=== PATIENT | female | born 1965 | race Two or more races ===

== ENCOUNTER 2024-08-14 13:22 | Inpatient (IN) | payer MEDICAID, OTHER ==
[~2024-08-14] VITALS: Ht 134.6 cm; Wt 55.4 kg
--- NOTE | 2024-08-14 13:34 | ED.PDOC ---
History of Present Illness HPI Comments 58-year-old female came to the ER stating that she has been having dizziness for the past two days associated with blurring of vision. Blood pressure of 227/84. Heart rate of 100. Patient denies taking any medication for her blood pressure. She also states that she is unable to ambulate without feeling that she is going to fall down for the past few days. Denies nausea vomiting. Denies any other symptoms. Time Seen by MD: 13:33 Reviewed Notes: Nurses Notes, Medications, Allergies Information Source: Patient Mode of Arrival: Ambulatory Severity: Moderate Timing: Days Duration: Since onset Past Medical History PAST MEDICAL HISTORY: Denies Surgical History: Denies all surgeries INTERNAL CONTROLS CONSULTANT History: No Pertinent INTERNAL CONTROLS CONSULTANT History Social History Smoker: Non-Smoker Alcohol: Denies ETOH Use Drugs: Denies Drug Use Constitutional: denies: chills, diaphoresis, fatigue, fever, malaise, sweats, weakness, others EENTM: denies: blurred vision, double vision, ear bleeding, ear discharge, ear drainage, ear pain, ear ringing, eye pain, eye redness, hearing loss, mouth pain, mouth swelling, nasal discharge, nose bleeding, nose congestion, nose pain, photophobia, tearing, throat pain, throat swelling, voice changes, others Cardiovascular: denies: chest pain, dizzy spells, diaphoresis, Dyspnea on exertion, edema, irregular heart beat, left arm pain, lightheadedness, palpitations, PND, syncope, others Gastrointestinal: denies: abdomen distended, abdominal pain, blood streaked bowels, constipated, diarrhea, dysphagia, difficulty swallowing, hematemesis, melena, nausea, poor appetite, poor fluid intake, rectal bleeding, rectal pain, vomiting, others Genitourinary: denies: abnormal vagina bleeding, burning, dyspareunia, dysuria, flank pain, frequency, hematuria, incontinence, pain, , vagina discharge, urgency, others Neurological: reports: dizziness; denies: fainting, headache, left sided numbness, left sided weakness, numbness, paresthesia, pre-existing deficit, right sided numbness, right sided weakness, seizure, speech problems, tingling, tremors, weakness, others Musculoskeletal: denies: back pain, gout, joint pain, joint swelling, muscle pain, muscle stiffness, neck pain, others Integumetry: denies: bruises, change in color, change in hair/nails, dryness, laceration, lesions, lumps, rash, wounds, others Allergic/Immunocompromised: denies: Difficulty Healing, Frequent Infections, Hives, Itching, others Hematologic/Lymphatic: denies: anemia, blood clots, easy bleeding, easy bruising, swollen glands, others Endocrine: denies: excessive hunger, excessive sweating, excessive thirst, excessive urination, flushing, intolerance to cold, intolerance to heat, un explained weight gain, unexplained weight loss, others Psychiatric: denies: anxiety, bipolar disorder, depression, hopeless, panic disorder, schizophrenia, sleepless, suicidal, others Physical Exam General Appearance: Moderate Distress HEENT: Normal ENT Inspection, Pharynx Normal, TMs Normal Neck: Full Range of Motion, Non-Tender, Normal, Normal Inspection Respiratory: Chest Non-Tender, Lungs Clear, No Accessory Muscle Use, No Respiratory Distress, Normal Breath Sounds Cardiovascular: No Edema, No JVD, No Murmur, No Gallop, Normal Peripheral Pulses, Regular Rate/Rhythm Breast Exam: Deferred Gastrointestinal: No Organomegaly, Non Tender, No Pulsatile Mass, Normal Bowel Sounds, Soft Genitalia: Deferred Pelvic: Deferred Rectal: Deferred Extremities: No calf tenderness, Normal capillary refill, Normal inspection, Normal range of motion, Non-tender, No pedal edema Musculoskeletal : Apperance: Normal Neurologic: Alert, 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 Was a procedure done?: No Differential Dx Considerations may include: Autonomic disorder Electrolyte imbalance X-Ray, Labs, Meds, VS Patient alert. Complaining of dizziness. Blood pressure elevated. Answering questions. She is unable to ambulate without feeling like falling down. Was given clonidine. She does not take any medication for her blood pressure. Explained to the patient. Continue monitoring. EKG reviewed does show changes. Time of 1ST Reevaluation: 13:39 Reevaluation 1ST: Unchanged Patient Education/Counseling: Diagnosis, Treatment, Prognosis Family Education/Counseling: No Family Present Departure 1 Departure Time of Disposition: 13:40 Impression: Primary Impression: Hypertensive emergency Additional Impression: Autonomic disorder Disposition: 09 ADMITTED INPATIENT Admit to: Med Surg Condition: Guarded Critical Care Note Critical Care Time?: Yes (45 min-critical care time only) Critical care comment: Extremely high blood pressure Stability Stability form required: No Heart Score Heart Score: Heart Score Response (Comments) Value History Slightly Suspicious 0 EKG Normal 0 Age 45-64 1 Risk Factors 1 or 2 risk factors 1 Troponin Normal limit 0 Total 2 ANA FIGUEROA MD Aug 14, 2024 13:34
[2024-08-14 13:45] VITALS: PULSE 86; RESP 16; O2SAT 98
--- NOTE | 2024-08-14 14:00 | ECG ---
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
[2024-08-14 14:02] LABS: Basophils # (auto) 0.1 10 ^3/uL (0-0.2); Basophils % (auto) 0.7 % (0.0-2.0); Eosinophils # (auto) 0.2 10 ^3/uL (0-0.8); Eosinophils % (auto) 2.7 % (0.0-7.0); Hematocrit 29.8 % (36.0-46.0); Hemoglobin 9.7 g/dL (12.2-16.2); Lymphocytes # (auto) 1.9 10 ^3/uL (0.4-5.4); Lymphocytes % (auto) 21.4 % (10.0-50.0); Mean Corpuscular Hemoglobin 27.2 pg (28.0-32.0); Mean Corpuscular Hgb Conc. 32.7 g/dL (32.0-36.0); Mean Corpuscular Volume 83.3 fL (80.0-100.0); Monocytes # (auto) 0.5 10 ^3/uL (0-1.3); Monocytes % (auto) 5.6 % (0.0-12.0); Neutrophils # (auto) 6.1 10 ^3/uL (1.6-8.6); Neutrophils % (auto) 69.6 % (37.0-80.0); Platelet Count (auto) 267 10^3/uL (140-450); Red Blood Cells 3.57 10^6/uL (4.0-5.20); Red Cell Distribution Width 13.8 % (11.8-14.3); White Blood Cell 8.8 10^3/uL (4.4-10.8)
[2024-08-14] MEDS: cloNIDine HCL 0.1 MG TAB PO ONE (14:06)
[2024-08-14 14:08] LABS: Sodium 141 mmol/L (136-145)
[2024-08-14 14:09] LABS: Anion Gap 7 (5-15); Carbon Dioxide 24 mmol/L (20-31)
[2024-08-14 14:10] LABS: Calcium 9.6 mg/dL (8.7-10.4)
[2024-08-14 14:16] LABS: Blood Urea Nitrogen 40 mg/dL (9-23); Chloride 110 mmol/L (98-107); Glucose 126 mg/dL (74-106); Potassium 5.3 mmol/L (3.5-5.1)
--- NOTE | 2024-08-14 16:19 | DVH ---
EXAM: CT HEAD WITHOUT CONTRAST HISTORY: tia COMPARISON: None TECHNIQUE: Axial images were obtained and reformatted in coronal and sagittal planes. All CT scans at this medical facility are performed using dose modulation techniques as appropriate t o a performed exam including the following: Automated exposure control was utilized; adjustment of th e MA and/or KV according to patient size; and use of iterative reconstruction technique. CT Dose: CTDI volume is 49 mGy. Dose-length product is 784 mGy*cm FINDINGS: Supratentorial Region: No evidence for large acute territorial ischemia. No intracranial hemorrhage is noted. Confluent white matter hypoattenuating foci are noted bilaterally, which typically reflect chronic microvascular ischemic changes. Posterior Fossa: No acute abnormality. Brainstem: Unremarkable. Sellar/Suprasellar Region: Unremarkable. Ventricles, Cisterns, Sulci: Age-appropriate. Orbits: Unremarkable. Paranasal Sinuses: Unremarkable. Mastoid Air Cells: Unremarkable. Vasculature: Intracranial arterial calcified plaque formation noted. Bones/Soft Tissues: No acute abnormality. Other: None. IMPRESSION: 1. No acute intracranial process.
[2024-08-14 19:40] VITALS: PULSE 72; RESP 16; O2SAT 98
[2024-08-14] MEDS ORDERED: HYDROcodone-ACET 5/325MG TAB PO PRN (22:00)
[2024-08-14] MEDS ORDERED: DOCUSATE SOD 100 MG CAP PO PRN (22:00)
[2024-08-14] MEDS ORDERED: ONDANSETRON HCL 4 MG/2 ML VIAL IV PRN (22:00)
[2024-08-14] MEDS ORDERED: ACETAMINOPHEN 325 MG TAB PO PRN (22:00)
[2024-08-14 22:12] LABS: Urine Bacteria MANY /hpf (None Seen); Urine Blood Negative /uL (Negative); Urine Clarity Turbid (Clear); Urine Color Colorless (Yellow); Urine Hyaline Cast FEW /lpf (0 - 2); Urine Protein, UAD 2+ (Negative); Urine Specific Gravity 1.008 (1.001-1.035); Urine Squamous Epithelial Cell FEW /hpf (<5); Urine Urobilinogen Normal (Negative); Urine WBC 17 /HPF (0-5)
[2024-08-14] MEDS: SODIUM CHLOR 0.9% PF (SALINE LOCK) 10ML VIAL/SYR IV SCH (22:21)
[2024-08-14] MEDS: SODIUM ZIRCONIUM CYCL 10 GM PAK PO ONE (22:29)
--- NOTE | 2024-08-14 23:04 | DVHHP2 ---
History of Present Illness Reason for Visit: Hypertensive urgency History of Present Illness The patient is a 58-year-old female who denies past medical history presented to [facility] ED with complaint of dizziness. Patient reports symptoms progressively get worse with blurry vision, elevated blood pressure, getting worse that prompted this visit. Patient is unable to ambulate, patient was seen and evaluated in the ED, laboratory data shows WBC 8 point eight, hemoglobin 9.7, hematocrit 29.8, platelets 267, sodium 141, potassium 5.3, BUN 40, creatinine 2.35, GFR 23, glucose 126, calcium 9.6, troponin eight, blood pressure 227/89 trending down to 137/55, heart rate 86, temperature 97.8 F, O2 saturation 98% on room air. Head CT show no acute intracranial process. Please see medication orders section in the computer. On my assessment, patient denied chest pain, no headache, no dizziness, no shortness of breaths, no nausea, no vomiting, no fever, no chills. Patient was admitted for further evaluation and medical management. Past Medical History Denies past medical history Past Surgical History Denies all surgeries Family History Reviewed, noncontributory to the management of this case. Past Social History The patient lives at home, denies smoking, alcohol or illicit drugs abuse. Review of Systems Constitutional: No: Fever, Chills, Sweats, Weakness, Malaise, Other Eyes: No: Pain, Vision change, Conjunctivae inflammation, Eyelid inflammation, Other, Redness ENT: No: Ear pain, Ear discharge, Nose pain, Nose discharge, Nose congestion, Mouth pain, Mouth swelling, Throat pain, Throat swelling, Other Respiratory: No: Cough, Dry, Shortness of breath, SOB with excertion, Wheezing, Hemoptysis, Pleuritic Pain, Sputum, Wheezing, Other Cardiovascular: No: Chest Pain, Palpitations, Orthopnea, Paroxysmal Noc. Dyspnea, Edema, Lt Headedness, Other Gastrointestinal: No: Nausea, Vomiting, Abdominal Pain, Diarrhea, Constipation, Melena, Hematochezia, Other Genitourinary: No Dysuria, No Frequency, No Incontinence, No Hematuria, No Retention, No Other Musculoskeletal: No: other, neck pain, shoulder pain, arm pain, back pain, hand pain, leg pain, foot pain Skin: No: Rash, Lesions, Jaundice, Bruising, Other Neurological: No: Weakness, Numbness, Incoordination, Change in speech, Confusion, Seizures, Other Allergies: Coded Allergies: NO KNOWN ALLERGIES (Unverified , 08/14/24) Medications Current Medications Medications Dose Ordered Sig/Myah Route Start Time Stop Time Status Last Admin Dose Admin Hydralazine HCl 10 mg Q6HP PRN IV 08/14/24 22:00 Sodium Chloride 10 ml Q8HR IV 08/14/24 22:00 08/14/24 22:21 10 ML Acetaminophen/ Hydrocodone Bitart 1 tab Q4HP PRN PO 08/14/24 22:00 Ondansetron HCl 4 mg Q4HP PRN IV 08/14/24 22:00 Docusate Sodium 100 mg BIDPRN PRN PO 08/14/24 22:00 Acetaminophen 650 mg Q6HP PRN PO 08/14/24 22:00 Exam Vital Signs Vital Signs Date Time Temp Pulse Resp B/P (MAP) Pulse Ox O2 Delivery O2 Flow Rate FiO2 08/14/24 19:40 97.7 72 16 137/55 (82) 98 97.7 08/14/24 19:40 Room Air* 0 21 General Appearance: Alert, Oriented X3, Cooperative, No acute distress HEENT: Atraumatic, PERRLA, EOMI, Mucous membr. moist/pink Respiratory: Clear to auscultation, Normal air movement Cardiovascular: Regular rate, Normal S1, Normal S2, No murmurs Abdominal: Normal bowel sounds, Soft, No tenderness, No hepatospenomegaly, No masses Extremities: No clubbing, No cyanosis, No edema, Normal pulses, No tenderness/swelling Skin: No rashes, No breakdown, No significant lesion Neuro: Normal gait, Normal speech, Strength at 5/5 X4 ext, Normal tone, Sensation intact, Cranial nerves 3-12 NL, Reflexes 2+ Psych/Mental Status: Mental status NL, Mood NL Labs/Xrays Labs Test 08/14/24 21:05 08/14/24 13:47 08/14/24 13:35 Range/Units Urine Color Colorless Yellow Urine Clarity Turbid H Clear Urine pH 6.0 5.0-9.0 Urine Specific [place] 1.008 1.001-1.035 Urine Protein 2+ H Negative Urine Ketones Negative Negative Urine Blood Negative Negative /uL Urine Nitrite Negative Negative Urine Bilirubin Negative Negative Urine Urobilinogen Normal Negative mg/dL Urine Leukocyte Esterase 1+ Negative /uL Urine RBC <1 0 - 4 /hpf Urine Microscopic WBC 17 H 0-5 /HPF Urine Squamous Epithelial Cells Few <5 /hpf Urine Bacteria Many H None Seen /hpf Urine Hyaline Casts Few 0 - 2 /lpf Urine Glucose Trace Normal mg/dL White Blood Count 8.8 4.4-10.8 10^3/uL Red Blood Count 3.57 L 4.0-5.20 10^6/uL Hemoglobin 9.7 L 12.2-16.2 g/dL Hematocrit 29.8 L 36.0-46.0 % Mean Corpuscular Volume 83.3 80.0-100.0 fL Mean Corpuscular Hemoglobin 27.2 L 28.0-32.0 pg Mean Corpuscular Hemoglobin Concent 32.7 32.0-36.0 g/dL Red Cell Distribution Width 13.8 11.8-14.3 % Platelet Count 267 140-450 10^3/uL Mean Platelet Volume 8.0 6.9-10.8 fL Neutrophils (%) (Auto) 69.6 37.0-80.0 % Lymphocytes (%) (Auto) 21.4 10.0-50.0 % Monocytes (%) (Auto) 5.6 0.0-12.0 % Eosinophils (%) (Auto) 2.7 0.0-7.0 % Basophils (%) (Auto) 0.7 0.0-2.0 % Neutrophils # (Auto) 6.1 1.6-8.6 10 ^3/uL Lymphocytes # (Auto) 1.9 0.4-5.4 10 ^3/uL Monocytes # (Auto) 0.5 0-1.3 10 ^3/uL Eosinophils # (Auto) 0.2 0-0.8 10 ^3/uL Basophils # (Auto) 0.1 0-0.2 10 ^3/uL Nucleated Red Blood Cells 0.0 % Sodium Level 141 136-145 mmol/L Potassium Level 5.3 H 3.5-5.1 mmol/L Chloride Level 110 H 98-107 mmol/L Carbon Dioxide Level 24 20-31 mmol/L Anion Gap 7 5-15 Blood Urea Nitrogen 40 H 9-23 mg/dL Creatinine 2.35 H 0.550-1.02 mg/dL Glomerular Filtration Rate Calc 23 >90 mL/min BUN/Creatinine Ratio 17.0 10.0-20.0 Serum Glucose 126 H 74-106 mg/dL Calcium Level 9.6 8.7-10.4 mg/dL Troponin I High Sensitivity 8 </=34 ng/L POC Glucose 114 H 70-106 mg/dl PATIENT: HAIR GARRIDO ACCT: [id number] UNIT: [id number] : 1965 LOC: ER ROOM / BED: / AGE / SEX: 58 / F ADM STATUS: REG ER SERVICE [id number] ORDERING PHYSICIAN: ANA FIGUEROA MD PROCEDURE(s): HWOCT - HEAD WITHOUT CONTRAST REASON: tia ORDER NUMBER(s): [id number], ACCESSION NUMBER(s): [id number] EXAM: CT HEAD WITHOUT CONTRAST HISTORY: tia COMPARISON: None TECHNIQUE: Axial images were obtained and reformatted in coronal and sagittal planes. All CT scans at this medical facility are performed using dose modulation techniques as appropriate to a performed exam including the following: Automated exposure control was utilized; adjustment of the MA and/or KV according to patient size; and use of iterative reconstruction technique. CT Dose: CTDI volume is 49 mGy. Dose-length product is 784 mGy*cm FINDINGS: Supratentorial Region: No evidence for large acute territorial ischemia. No intracranial hemorrhage is noted. Confluent white matter hypoattenuating foci are noted bilaterally, which typically reflect chronic microvascular ischemic changes. Posterior Fossa: No acute abnormality. Brainstem: Unremarkable. Sellar/Suprasellar Region: Unremarkable. Ventricles, Cisterns, Sulci: Age-appropriate. Orbits: Unremarkable. Paranasal Sinuses: Unremarkable. Mastoid Air Cells: Unremarkable. Vasculature: Intracranial arterial calcified plaque formation noted. Bones/Soft Tissues: No acute abnormality. Other: None. IMPRESSION: 1. No acute intracranial process. Assessment/Plan Assessment/Plan Hypertensive emergency Hyperkalemia Autonomic disorder Acute renal injury Plan 1. Admit to telemetry units 2. Breathing treatment 3. Pain control management 4. Management of fluids and electrolytes 5. Consultation for hospitalist 6. Diagnostic tests head CT 7. DVT prophylaxis-on SCDs 8. Repeat labs CBC, CMP in a.m. 9. Continue with current medical management 10. Treatment plan discussed with patient and RN. Patient verbalized understanding. Plan discussed with: Patient, Other (RN) My Orders Orders - RACHEL HARRELL DNP Procedure Category Date Status Time Hydralazine Injection PHA 08/14/24 In Process (Apresoline Inject 22:00 *Dr. [facility] CONS 08/14/24 Transmitted -[place] 21:53 Allergies SIERRA 08/14/24 In Process 21:53 Code Status CODE 08/14/24 Transmitted 21:53 Sodium Chloride Lock PHA 08/14/24 In Process (Saline Lock Ns) 22:00 Oxygen Per Hour RT 08/14/24 Transmitted 21:53 Hydrocodone-Acet PHA 08/14/24 In Process 5/325mg Tab ([place] 22:00 Ondansetron Hcl PHA 08/14/24 In Process (Zofran) 22:00 Docusate Sodium PHA 08/14/24 In Process Capsule ([place] 22:00 Complete Blood Count LAB 08/15/24 Verified 04:00 Comprehensive LAB 08/15/24 Verified Metabolic Panel 04:00 Cardiac DIET 08/15/24 Transmitted Diet-2gna,Lofat,Lochol Breakfast Condition: Serious SIERRA 08/14/24 In Process 21:53 Acetaminophen Tablet PHA 08/14/24 In Process (Tylenol Tablet) 22:00 Bedrest With Bathroom SIERRA 08/14/24 In Process Privileg 21:53 Sequential SIERRA 08/14/24 In Process Compression Device Problem List: (1) Hypertensive emergency (2) Hyperkalemia (3) Acute renal injury (4) Autonomic disorder Date of Service: Aug 14, 2024 Billing Provider: RACHEL HARRELL DNP Common Visit Codes: 01743-EFSXRSM INP/OBS CARE (HIGH) RACHEL HARRELL DNP Aug 14, 2024 23:04
[2024-08-14] MEDS ORDERED: NITROGLYCERIN 0.4 MG SL TAB SL PRN (23:15)
[2024-08-14] MEDS ORDERED: MORPHINE SULFATE INJ 2 MG/ml SYRG IV PRN (23:15)
[2024-08-15] VITALS (9 sets, daily range): BP systolic 154–195; BP diastolic 60–85; PULSE 74–84; RESP 18–20; TEMP 36.4; O2SAT 98–100
[2024-08-15 04:19] LABS: Alanine Aminotransferase 10 U/L (7-40); Albumin 3.6 g/dL (3.2-4.8); Alkaline Phosphatase 115 U/L (46-116); Anion Gap 9 (5-15); Calcium 9.6 mg/dL (8.7-10.4); Carbon Dioxide 22 mmol/L (20-31); Potassium 4.9 mmol/L (3.5-5.1); Sodium 139 mmol/L (136-145)
[2024-08-15 04:20] LABS: Basophils # (auto) 0 10 ^3/uL (0-0.2); Basophils % (auto) 0.6 % (0.0-2.0); Eosinophils # (auto) 0.3 10 ^3/uL (0-0.8); Hematocrit 27.8 % (36.0-46.0); Hemoglobin 9.1 g/dL (12.2-16.2); Lymphocytes # (auto) 1.7 10 ^3/uL (0.4-5.4); Lymphocytes % (auto) 20.5 % (10.0-50.0); Mean Corpuscular Hemoglobin 27.3 pg (28.0-32.0); Mean Corpuscular Hgb Conc. 32.6 g/dL (32.0-36.0); Mean Corpuscular Volume 83.6 fL (80.0-100.0); Monocytes # (auto) 0.5 10 ^3/uL (0-1.3); Monocytes % (auto) 5.9 % (0.0-12.0); Neutrophils # (auto) 5.9 10 ^3/uL (1.6-8.6); Platelet Count (auto) 261 10^3/uL (140-450); Red Blood Cells 3.33 10^6/uL (4.0-5.20); Total Protein 5.8 g/dL (5.7-8.2); White Blood Cell 8.5 10^3/uL (4.4-10.8)
[2024-08-15 04:27] LABS: Aspartate Aminotransferase 11 U/L (13-40); Bilirubin, Total 0.2 mg/dL (0.2-1.0); Blood Urea Nitrogen 43 mg/dL (9-23); Chloride 108 mmol/L (98-107); Glucose 143 mg/dL (74-106)
[2024-08-15] MEDS: hydrALAZINE HCL 20 MG/ML VL IV PRN (04:36)
[2024-08-15 11:30] LABS: % Iron Saturation 15.8 % (15-50)
--- NOTE | 2024-08-15 12:16 | DVH ---
INDICATION: ED w/u TECHNIQUE: Multiple real-time sonographic images of the kidneys and bladder were obtained. COMPARISON: None FINDINGS: The right kidney measures 12 cm in length, which is normal in size. There is normal echogenicity of t he right kidney. No hydronephrosis. The left kidney measures 10 cm in length, which is normal in size. There is normal echogenicity of th e left kidney. No hydronephrosis. Urinary bladder is decompressed which limits evaluation. IMPRESSION: 1. Normal sonographic appearance of the kidneys. No hydronephrosis.
[2024-08-15 13:09] LABS: Creatinine, Urine 49.98 mg/dL (30.0-125.0)
[2024-08-15 13:12] LABS: Urine Protein/Creatinine Ratio 5.44
[2024-08-15 13:13] LABS: Protein, Urine 271.7 mg/dL (1-14)
[2024-08-15] MEDS ORDERED: AML5T PO (15:41)
[2024-08-15] MEDS ORDERED: CARV-214 PO (15:41)
--- NOTE | 2024-08-15 15:45 | DVHDS2 ---
Discharge Summary Date of Admission Aug 14, 2024 at 23:03 Date of Discharge: Aug 15, 2024 Labs/Diagnostic Data: Laboratory Results Test 08/15/24 03:36 08/14/24 21:05 08/14/24 13:47 08/14/24 13:35 White Blood Count 8.5 10^3/uL (4.4-10.8) Red Blood Count 3.33 10^6/uL (4.0-5.20) Hemoglobin 9.1 g/dL (12.2-16.2) Hematocrit 27.8 % (36.0-46.0) Mean Corpuscular Volume 83.6 fL (80.0-100.0) Mean Corpuscular Hemoglobin 27.3 pg (28.0-32.0) Mean Corpuscular Hemoglobin Concent 32.6 g/dL (32.0-36.0) Red Cell Distribution Width 14.0 % (11.8-14.3) Platelet Count 261 10^3/uL (140-450) Mean Platelet Volume 8.5 fL (6.9-10.8) Neutrophils (%) (Auto) 70.0 % (37.0-80.0) Lymphocytes (%) (Auto) 20.5 % (10.0-50.0) Monocytes (%) (Auto) 5.9 % (0.0-12.0) Eosinophils (%) (Auto) 3.0 % (0.0-7.0) Basophils (%) (Auto) 0.6 % (0.0-2.0) Neutrophils # (Auto) 5.9 10 ^3/uL (1.6-8.6) Lymphocytes # (Auto) 1.7 10 ^3/uL (0.4-5.4) Monocytes # (Auto) 0.5 10 ^3/uL (0-1.3) Eosinophils # (Auto) 0.3 10 ^3/uL (0-0.8) Basophils # (Auto) 0 10 ^3/uL (0-0.2) Nucleated Red Blood Cells 0.0 % Sodium Level 139 mmol/L (136-145) Potassium Level 4.9 mmol/L (3.5-5.1) Chloride Level 108 mmol/L (98-107) Carbon Dioxide Level 22 mmol/L (20-31) Anion Gap 9 (5-15) Blood Urea Nitrogen 43 mg/dL (9-23) Creatinine 2.39 mg/dL (0.550-1.02) Glomerular Filtration Rate Calc 23 mL/min (>90) BUN/Creatinine Ratio 18.0 (10.0-20.0) Serum Glucose 143 mg/dL (74-106) Calcium Level 9.6 mg/dL (8.7-10.4) Iron Level 44 ug/dL (50-170) Total Iron Binding Capacity 279 ug/dL (250-425) Percent Iron Saturation 15.8 % (15-50) Ferritin 40.0 ng/mL (10-291) Total Bilirubin 0.2 mg/dL (0.2-1.0) Aspartate Amino Transferase (AST) 11 U/L (13-40) Alanine Aminotransferase (ALT) 10 U/L (7-40) Alkaline Phosphatase 115 U/L (46-116) Total Protein 5.8 g/dL (5.7-8.2) Albumin 3.6 g/dL (3.2-4.8) Urine Color Colorless (Yellow) Urine Clarity Turbid (Clear) Urine pH 6.0 (5.0-9.0) Urine Specific [place] 1.008 (1.001-1.035) Urine Protein 2+ (Negative) Urine Ketones Negative (Negative) Urine Blood Negative /uL (Negative) Urine Nitrite Negative (Negative) Urine Bilirubin Negative (Negative) Urine Urobilinogen Normal mg/dL (Negative) Urine Leukocyte Esterase 1+ /uL (Negative) Urine RBC <1 /hpf (0 - 4) Urine Microscopic WBC 17 /HPF (0-5) Urine Squamous Epithelial Cells Few /hpf (<5) Urine Bacteria Many /hpf (None Seen) Urine Hyaline Casts Few /lpf (0 - 2) Urine Creatinine 49.98 mg/dL (30.0-125.0) Urine Protein/Creatinine Ratio 5.44 Urine Sodium < 10 mmol/L (40-220) Urine Glucose Trace mg/dL (Normal) Urine Total Protein 271.7 mg/dL (1-14) Troponin I High Sensitivity 8 ng/L (</=34) POC Glucose 114 mg/dl (70-106) Other Laboratory Tests 08/15/24 03:36 Brief Hx & Hospital Course: 58 yo F admitted for hypertension. Initially BP 240s with some dizziness. CTH clear, no chest pain. Labs significant for ED however considering anemia and bicarb likely patient has CKD. DC with amlodipine and coreg, 1 week DC clinic for BMP and BP check Condition at Discharge: Good Final Diagnosis/Problems List hypertensive urgency ED likely VMN on CKD hypertensive nephropathy Anemia CKD Discharge Disposition: Home Discharge Instruct/Medications Diet: Cardiac 2g Na,low cholest Activity: No Restrictions, As Tolerated Follow Up/Referral: 1 week to dc clinic with BMP Medications: amlodipine coreg 45 Discharge Statement: "Patient was advised to return to the ER or call 911 if any headaches, dizziness, shortness of breath, chest pain, abdominal pain, bleeding, fevers, or worsening of medical condition. Patient was counseled about treatment plan, medications, possible side effects, patientverbalized understanding. All questions were answered to the best of my ability. This discharge took greater then 30 minutes in planning, reviewing documentation, counseling the patient, and discussing with other team members." ASSESSMENT ASSESSMENT Assessment hypertensive urgency ED likely VMN on CKD hypertensive nephropathy Anemia CKD obesity Date of Service: Aug 15, 2024 Billing Provider: JASON RIGGS MD Common Visit Codes: 51529-NWA/OBS DISCH DAY >30min JASON RIGGS MD Aug 15, 2024 15:45
[2024-08-15] MEDS: amLODIPine BESYLATE 5 MG TAB PO ONE (17:18)
[2024-08-15] MEDS: CARVEDILOL 3.125 MG TAB PO ONE (17:18)
[2024-08-15] MEDS ORDERED: CARVEDILOL 3.125 MG TAB PO SCH (22:00)
[2024-08-16] MEDS ORDERED: amLODIPine BESYLATE 5 MG TAB PO SCH (10:00)
== END 2024-08-15 18:56 | disposition home or self-care (01) | DRG 199 ==
LOC: ER 13:29 → OVERFLOW 23:03 → TELE-WESTW 08-15 04:20
PROVIDERS: ADMIT Student in an Organized Health Care Education/Training Program; ATTEND Internal Medicine Geriatric Medicine
DX: I16.0 Hypertensive urgency (principal); N17.0 Acute kidney failure with tubular necrosis; G90.89 Other disorders of autonomic nervous system; E87.5 Hyperkalemia; D64.9 Anemia, unspecified; N18.9 Chronic kidney disease, unspecified; I12.9 Hypertensive chronic kidney disease with stage 1 through stage 4 chronic kidney disease, or unspecified chronic kidney disease; E66.9 Obesity, unspecified; Z79.1 Long term (current) use of non-steroidal anti-inflammatories (NSAID); Z79.899 Other long term (current) drug therapy; Z79.891 Long term (current) use of opiate analgesic; Z68.30 Body mass index [BMI] 30.0-30.9, adult
CPT/HCPCS: 36415; 70450; 76775; 80048; 80053; 81001; 82570; 82728; 82962; 83540; 83550; 84156; 84300; 84484; 85025; 93005; G0378